=== PATIENT | male | born 1990 | race Caucasian/White ===

== ENCOUNTER → 2020-08-12 | Day surgery (SDC) | payer BC ==
[2020-08-09 13:59] VITALS: BP 148/56
[~2020-08-12] VITALS: Ht 180.3 cm; Wt 136.1 kg
[~2020-08-12] MED LIST: COLACE100 MG PO; PERCOCET 5-3251 EACH PO
[2020-08-12 07:21] VITALS: BP 142/76
[2020-08-12 09:22] VITALS: BP 150/124
[2020-08-12 09:37] VITALS: BP 160/94
[2020-08-12 09:52] VITALS: BP 144/93
[2020-08-12 10:07] VITALS: BP 141/80
[2020-08-12 10:22] VITALS: BP 134/71
== END ==
LOC: SDC 08-09 13:15
PROVIDERS: ATTEND Surgery
DX: L05.01 Pilonidal cyst with abscess (principal); J45.909 Unspecified asthma, uncomplicated; F41.9 Anxiety disorder, unspecified; F17.210 Nicotine dependence, cigarettes, uncomplicated; Z79.899 Other long term (current) drug therapy; Z20.828 Contact with and (suspected) exposure to other viral communicable diseases